=== PATIENT | male | born 1955 | race African-American/Black ===

== ENCOUNTER 2017-12-15 11:01 | Emergency (ER) | payer OTHER ==
[2017-12-15] MEDS: IBUPROFEN 600 MG TAB PO (12:33)
== END 2017-12-15 14:02 | disposition home or self-care (01) ==
LOC: FTE 11:01
DX: M25.512 Pain in left shoulder (principal); E11.9 Type 2 diabetes mellitus without complications
CPT/HCPCS: 73030; 99283-25